=== PATIENT | female | born 1930 | race Caucasian/White ===

== ENCOUNTER 2021-11-22 06:17 | Inpatient (IN) | payer MEDICARE, OTHER ==
[2021-11-23] MEDS ORDERED: Acetaminophen 650 MG Suppository PR PRN (06:27)
[2021-11-23] MEDS ORDERED: Ondansetron ODT 4 MG TAB PO PRN (06:27)
[2021-11-23] MEDS ORDERED: Ondansetron PF 4 MG/2 ML Vial IVP PRN (06:27)
[2021-11-23 07:54] LABS: Anion Gap 12 mmol/L (10-20); BUN (Urea Nitrogen) 18 mg/dL (9.8-20.1); Calc. Creatinine Clearance 50 mL/min (70-130); Calcium 8.4 mg/dL (7.8-10.44); Carbon Dioxide 21 mmol/L (23-31); Chloride 109 mmol/L (98-107); Estimated GFR 69; Glucose 88 mg/dL (83-110); Potassium 4.7 mmol/L (3.5-5.1); Sodium 137 mmol/L (136-145)
[2021-11-23] MEDS ORDERED: Communication Order-Pharmacy FS ONE (08:07)
[2021-11-23] MEDS ORDERED: hydrALAZINE 20 MG/ML VIAL SLOW IVP PRN (08:17)
[2021-11-23] MEDS ORDERED: Enoxaparin Sodium 40 MG/0.4 ML SYRINGE SC SCH (09:00)
[2021-11-23] MEDS ORDERED: Enoxaparin Sodium 30 MG/0.3 ML SYRINGE SC SCH ×2 (09:30→21:00)
[2021-11-23 10:22] LABS: #Eosinphils 0.1 thou/uL (0.0-0.7); #Lymphocytes 1.3 thou/uL (1.20-3.40); #Monocytes 0.3 thou/uL (0.11-0.59); #Neutrophils 2.1 thou/uL (1.40-6.50); %Basophils 0.5 % (0.0-1.0); %Lymphocytes 33.5 % (21.0-51.0); %Monocytes 7.8 % (0.0-10.0); %Neutrophils 56.2 % (42.0-75.0); Hemoglobin 9.9 g/dL (12.0-16.0); Mean Corpuscular HGB CONC 33.1 g/dL (32.0-36.0); Mean Corpuscular Hemoglobin 32.8 pg (27.0-31.0); Mean Corpuscular Volume 99.1 fL (78.0-98.0); Mean Platelet Volume 9.5 fL (7.4-10.4); Platelet Count 84 thou/uL (130-400); RBC Distribution Width 12.1 % (11.5-14.5); Red Blood Cell (RBC) Count 3.03 mill/uL (4.20-5.40); White Blood Cell (WBC) Count 3.8 thou/uL (4.8-10.8)
[2021-11-23 10:23] LABS: Hypochromia SLIGHT = 6-15 cells (100X) (0-5/hpf); MDiff Complete? YES; Platelet Morphology Comment Appears Decreased
[2021-11-23] MEDS: Sodium Chloride 0.45% 1,000 ML IV SCH ×2 (11:00→20:41)
[2021-11-23] MEDS: Folic Acid 1 MG TAB PO SCH (11:00)
[2021-11-23] MEDS: Aspirin 81 mg Enteric Coated Tablet PO SCH (11:00)
[2021-11-23] MEDS: Cyanocobalamin (Vitamin B-12) 1,000 MCG TAB PO SCH (11:00)
[2021-11-23] MEDS: NIRMATRELVIR 150 MG/RITONAVIR 100 MG PO SCH ×2 (11:12→20:39)
[2021-11-23] MEDS: Acetaminophen 325 MG TAB PO PRN (16:27)
[2021-11-23] MEDS: Zinc Sulfate 220 MG CAP PO SCH (20:36)
[2021-11-23] MEDS: Cholecalciferol 1,000 UNITS (25 MCG) TAB PO SCH (20:36)
[2021-11-24 05:57] LABS: ALT (SGPT) 19 U/L (8-55); AST (SGOT) 38 U/L (5-34); Albumin 2.8 g/dL (3.4-4.8); Alkaline Phosphatase 51 U/L (40-110); Anion Gap 11 mmol/L (10-20); BUN (Urea Nitrogen) 19 mg/dL (9.8-20.1); Bilirubin, Total 1.5 mg/dL (0.2-1.2); Calc. Creatinine Clearance 50 mL/min (70-130); Calcium 8.4 mg/dL (7.8-10.44); Carbon Dioxide 23 mmol/L (23-31); Chloride 105 mmol/L (98-107); Estimated GFR 70; Globulin 2.3 g/dL (2.4-3.5); Glucose 90 mg/dL (83-110); Magnesium 1.5 mg/dL (1.6-2.6); Potassium 4.5 mmol/L (3.5-5.1); Protein, Total 5.1 g/dL (5.8-8.1); Sodium 134 mmol/L (136-145)
[2021-11-24 06:12] LABS: #Eosinphils 0.1 thou/uL (0.0-0.7); #Lymphocytes 1.1 thou/uL (1.20-3.40); #Monocytes 0.3 thou/uL (0.11-0.59); %Basophils 0.2 % (0.0-1.0); %Lymphocytes 32.1 % (21.0-51.0); %Monocytes 9.4 % (0.0-10.0); %Neutrophils 55.3 % (42.0-75.0); Hemoglobin 9.1 g/dL (12.0-16.0); Mean Corpuscular Hemoglobin 32.5 pg (27.0-31.0); Mean Corpuscular Volume 98.5 fL (78.0-98.0); Mean Platelet Volume 9.3 fL (7.4-10.4); Phosphorus 1.9 mg/dL (2.3-4.7); Platelet Count 88 thou/uL (130-400); RBC Distribution Width 11.9 % (11.5-14.5); White Blood Cell (WBC) Count 3.5 thou/uL (4.8-10.8)
[2021-11-24] MEDS: Acetaminophen 325 MG TAB PO PRN ×2 (09:03→15:15)
[2021-11-24] MEDS: Aspirin 81 mg Enteric Coated Tablet PO SCH (09:03)
[2021-11-24] MEDS: Cyanocobalamin (Vitamin B-12) 1,000 MCG TAB PO SCH (09:03)
[2021-11-24] MEDS: NIRMATRELVIR 150 MG/RITONAVIR 100 MG PO SCH ×2 (09:04→21:04)
[2021-11-24] MEDS: Folic Acid 1 MG TAB PO SCH (09:04)
[2021-11-24] MEDS: D5 1/2 NS w/40 mEq KCL 1,000 ML IV SCH (16:34)
[2021-11-24] MEDS: Zinc Sulfate 220 MG CAP PO SCH (21:02)
[2021-11-24] MEDS: Cholecalciferol 1,000 UNITS (25 MCG) TAB PO SCH (21:02)
[2021-11-24] MEDS: Magnesium Chloride 64 MG TAB PO SCH (21:07)
[2021-11-25] MEDS: NIRMATRELVIR 150 MG/RITONAVIR 100 MG PO SCH ×2 (09:16→20:28)
[2021-11-25] MEDS: Aspirin 81 mg Enteric Coated Tablet PO SCH (09:17)
[2021-11-25] MEDS: Magnesium Chloride 64 MG TAB PO SCH ×2 (09:17→20:28)
[2021-11-25] MEDS: Folic Acid 1 MG TAB PO SCH (09:17)
[2021-11-25] MEDS: Cyanocobalamin (Vitamin B-12) 1,000 MCG TAB PO SCH (09:17)
[2021-11-25] MEDS: D5 1/2 NS w/40 mEq KCL 1,000 ML IV SCH (12:06)
[2021-11-25] MEDS: Cholecalciferol 1,000 UNITS (25 MCG) TAB PO SCH (20:27)
[2021-11-25] MEDS: Zinc Sulfate 220 MG CAP PO SCH (20:31)
[2021-11-26 06:00] LABS: Hemoglobin 10.1 g/dL (12.0-16.0); Platelet Count 126 thou/uL (130-400)
[2021-11-26 06:17] LABS: Anion Gap 10 mmol/L (10-20); BUN (Urea Nitrogen) 18 mg/dL (9.8-20.1); Calc. Creatinine Clearance 47 mL/min (70-130); Calcium 8.7 mg/dL (7.8-10.44); Carbon Dioxide 23 mmol/L (23-31); Chloride 103 mmol/L (98-107); Estimated GFR 65; Glucose 320 mg/dL (83-110); Sodium 129 mmol/L (136-145)
[2021-11-26 06:22] LABS: Potassium 6.9 mmol/L (3.5-5.1)
[2021-11-26] MEDS ORDERED: Calcium Gluc 4.6 MEQ/10 ML (100 MG/ML) SLOW IVP SCH (06:34)
[2021-11-26] MEDS ORDERED: Dextrose 50% Abboject 50 ML SYRINGE SLOW IVP PRN (06:34)
[2021-11-26] MEDS ORDERED: Insulin Regular 300 UNITS/3 ML VIAL IVP SCH (06:45)
[2021-11-26] MEDS: NIRMATRELVIR 150 MG/RITONAVIR 100 MG PO SCH ×2 (09:27→20:59)
[2021-11-26] MEDS: Folic Acid 1 MG TAB PO SCH (09:28)
[2021-11-26] MEDS: Cyanocobalamin (Vitamin B-12) 1,000 MCG TAB PO SCH (09:29)
[2021-11-26] MEDS: Aspirin 81 mg Enteric Coated Tablet PO SCH (09:29)
[2021-11-26] MEDS: Magnesium Chloride 64 MG TAB PO SCH (10:41)
[2021-11-26 13:42] LABS: Anion Gap 10 mmol/L (10-20); BUN (Urea Nitrogen) 18 mg/dL (9.8-20.1); Calc. Creatinine Clearance 50 mL/min (70-130); Carbon Dioxide 28 mmol/L (23-31); Chloride 99 mmol/L (98-107); Estimated GFR 69; Glucose 75 mg/dL (83-110); Potassium 4.5 mmol/L (3.5-5.1); Sodium 132 mmol/L (136-145)
[2021-11-26] MEDS: Zinc Sulfate 220 MG CAP PO SCH (20:59)
[2021-11-26] MEDS: Cholecalciferol 1,000 UNITS (25 MCG) TAB PO SCH (20:59)
[2021-11-27 05:54] LABS: Anion Gap 14 mmol/L (10-20); BUN (Urea Nitrogen) 22 mg/dL (9.8-20.1); Calc. Creatinine Clearance 49 mL/min (70-130); Calcium 9.2 mg/dL (7.8-10.44); Carbon Dioxide 23 mmol/L (23-31); Chloride 100 mmol/L (98-107); Estimated GFR 67; Glucose 96 mg/dL (83-110); Potassium 4.7 mmol/L (3.5-5.1); Sodium 132 mmol/L (136-145)
[2021-11-27] MEDS: NIRMATRELVIR 150 MG/RITONAVIR 100 MG PO SCH (08:52)
[2021-11-27] MEDS: Cyanocobalamin (Vitamin B-12) 1,000 MCG TAB PO SCH (08:53)
[2021-11-27] MEDS: Aspirin 81 mg Enteric Coated Tablet PO SCH (08:53)
[2021-11-27] MEDS: Folic Acid 1 MG TAB PO SCH (08:53)
[2021-11-27] MEDS: Acetaminophen 325 MG TAB PO PRN (11:33)
[2021-11-27] MEDS: Zinc Sulfate 220 MG CAP PO SCH (21:03)
[2021-11-27] MEDS: Cholecalciferol 1,000 UNITS (25 MCG) TAB PO SCH (21:03)
[2021-11-28 08:12] LABS: Anion Gap 14 mmol/L (10-20); BUN (Urea Nitrogen) 24 mg/dL (9.8-20.1); Calc. Creatinine Clearance 41 mL/min (70-130); Calcium 9.1 mg/dL (7.8-10.44); Carbon Dioxide 26 mmol/L (23-31); Chloride 98 mmol/L (98-107); Estimated GFR 55; Glucose 130 mg/dL (83-110); Potassium 4.5 mmol/L (3.5-5.1); Sodium 133 mmol/L (136-145)
[2021-11-28] MEDS: Cyanocobalamin (Vitamin B-12) 1,000 MCG TAB PO SCH (08:23)
[2021-11-28] MEDS: Folic Acid 1 MG TAB PO SCH (08:23)
[2021-11-28] MEDS ORDERED: Bupivacaine HCl 0.5%/Epinephrine 1:200,000/PF 30 ml Vial ONE (10:10)
[2021-11-28] MEDS ORDERED: Neomycin-Polymyxin 1 ML AMP ONE (10:10)
[2021-11-28] MEDS ORDERED: Rocuronium Bromide 10 MG/ML (10ML VIAL) ONE (11:31)
[2021-11-28] MEDS ORDERED: Clindamycin/D5W 600 mg/50 ml Premix Bag ONE (11:36)
[2021-11-28] MEDS ORDERED: Clindamycin/D5W 600 MG in Premix Bag 1 BAG IVPB SCH (11:45)
[2021-11-28] MEDS ORDERED: Bupivacaine PF 0.5% 30 ML VIAL ONE (12:46)
[2021-11-28] MEDS ORDERED: SUGAMMADEX SODIUM 200 MG/2 ML VIAL ONE (12:53)
[2021-11-28] MEDS ORDERED: Fentanyl 100 MCG/2 ML VIAL ONE (12:56)
[2021-11-28] MEDS ORDERED: Ondansetron PF 4 MG/2 ML Vial ONE (12:57)
[2021-11-28] MEDS ORDERED: Ondansetron HCl/PF 4 MG/2 ML Vial IVP PRN (13:13)
[2021-11-28] MEDS ORDERED: Promethazine HCl 25 MG/ML VIAL IVPB PRN (13:13)
[2021-11-28] MEDS ORDERED: Promethazine HCl 25 MG/ML VIAL IM PRN (13:13)
[2021-11-28] MEDS ORDERED: HYDROcodone/Acetaminophen 7.5/325 mg Tablet PO PRN (13:17)
[2021-11-28] MEDS ORDERED: Morphine 4 MG/ML VIAL SLOW IVP PRN (13:24)
[2021-11-28] MEDS ORDERED: Morphine 2 MG/ML VIAL SLOW IVP SCH (13:30)
[2021-11-28] MEDS: Aspirin 81 mg Enteric Coated Tablet PO SCH (14:32)
[2021-11-28] MEDS: Clindamycin/D5W 600 MG in Premix Bag 1 BAG IVPB SCH (17:39)
[2021-11-28] MEDS: HYDROcodone/Acetaminophen 7.5/325 mg Tablet PO PRN (20:13)
[2021-11-28] MEDS: Cholecalciferol 1,000 UNITS (25 MCG) TAB PO SCH (20:15)
[2021-11-28] MEDS: Zinc Sulfate 220 MG CAP PO SCH (20:15)
[2021-11-29] MEDS: Clindamycin/D5W 600 MG in Premix Bag 1 BAG IVPB SCH (01:19)
[2021-11-29 05:04] LABS: Platelet Count 185 thou/uL (130-400)
[2021-11-29] MEDS: Aspirin 81 mg Enteric Coated Tablet PO SCH (09:55)
[2021-11-29] MEDS: Cyanocobalamin (Vitamin B-12) 1,000 MCG TAB PO SCH (09:55)
[2021-11-29] MEDS: Folic Acid 1 MG TAB PO SCH (09:55)
[2021-11-29] MEDS: HYDROcodone/Acetaminophen 7.5/325 mg Tablet PO PRN (11:29)
[2021-11-29] MEDS: Mirtazapine 15 MG Soltab PO SCH (20:30)
[2021-11-29] MEDS: Cholecalciferol 1,000 UNITS (25 MCG) TAB PO SCH (20:30)
[2021-11-29] MEDS: Atorvastatin Calcium 10 MG TAB PO SCH (20:30)
[2021-11-29] MEDS: Zinc Sulfate 220 MG CAP PO SCH (20:30)
[2021-11-29] MEDS ORDERED: Simvastatin 20 MG TAB PO SCH (21:00)
[2021-11-30 05:35] VITALS: BMI 24.6
[2021-11-30] MEDS: Aspirin 81 mg Enteric Coated Tablet PO SCH (08:52)
[2021-11-30] MEDS: Cyanocobalamin (Vitamin B-12) 1,000 MCG TAB PO SCH (08:53)
[2021-11-30] MEDS: Folic Acid 1 MG TAB PO SCH (08:53)
[2021-11-30] MEDS: HYDROcodone/Acetaminophen 7.5/325 mg Tablet PO PRN (18:08)
[2021-11-30] MEDS ORDERED: Sodium Chloride 0.9% 500 ML IV SCH (18:30)
[2021-11-30] MEDS: Atorvastatin Calcium 10 MG TAB PO SCH (20:03)
[2021-11-30] MEDS: Mirtazapine 15 MG Soltab PO SCH (20:03)
[2021-11-30] MEDS: Cholecalciferol 1,000 UNITS (25 MCG) TAB PO SCH (20:03)
[2021-11-30] MEDS: Zinc Sulfate 220 MG CAP PO SCH (20:03)
[2021-11-30] MEDS ORDERED: Fentanyl 100 MCG/2 ML VIAL ONE (20:11)
[2021-12-01] MEDS: Aspirin 81 mg Enteric Coated Tablet PO SCH (08:52)
[2021-12-01] MEDS: Folic Acid 1 MG TAB PO SCH (08:52)
[2021-12-01] MEDS: Cyanocobalamin (Vitamin B-12) 1,000 MCG TAB PO SCH (08:52)
[2021-12-01 12:01] LABS: Hemoglobin 8.4 g/dL (12.0-16.0); Platelet Count 240 thou/uL (130-400)
[2021-12-01] MEDS: HYDROcodone/Acetaminophen 7.5/325 mg Tablet PO PRN (15:17)
[2021-12-01] MEDS: Zinc Sulfate 220 MG CAP PO SCH (21:07)
[2021-12-01] MEDS: Atorvastatin Calcium 10 MG TAB PO SCH (21:07)
[2021-12-01] MEDS: Cholecalciferol 1,000 UNITS (25 MCG) TAB PO SCH (21:07)
[2021-12-01] MEDS: Mirtazapine 15 MG Soltab PO SCH (21:07)
[2021-12-02 05:29] LABS: Hemoglobin 8.5 g/dL (12.0-16.0); Platelet Count 240 thou/uL (130-400)
[2021-12-02] MEDS: Aspirin 81 mg Enteric Coated Tablet PO SCH (09:46)
[2021-12-02] MEDS: Folic Acid 1 MG TAB PO SCH (09:46)
[2021-12-02] MEDS: Acetaminophen 325 MG TAB PO PRN ×2 (14:27→20:15)
[2021-12-02] MEDS: Cyanocobalamin (Vitamin B-12) 1,000 MCG TAB PO SCH (14:30)
[2021-12-02 19:46] VITALS: BP 139/63; TEMP 98.1
[2021-12-02] MEDS: Zinc Sulfate 220 MG CAP PO SCH (20:15)
[2021-12-02] MEDS: Mirtazapine 15 MG Soltab PO SCH (20:15)
[2021-12-02] MEDS: Cholecalciferol 1,000 UNITS (25 MCG) TAB PO SCH (20:15)
[2021-12-02] MEDS: Atorvastatin Calcium 10 MG TAB PO SCH (20:15)
== END 2021-12-02 20:29 | DRG 492 ==
LOC: NEURO 06:17
PROVIDERS: ADMIT Internal Medicine; ATTEND Internal Medicine
PROC: 8E0ZXY6 Isolation (ICD-10-PCS; 2021-11-22)
PROC: XW0DXF5 Introduction of Other New Technology Therapeutic Substance into Mouth and Pharynx, External Approach, New Technology Group 5 (ICD-10-PCS; 2021-11-23)
PROC: 0PSC04Z Reposition Right Humeral Head with Internal Fixation Device, Open Approach (ICD-10-PCS; principal; 2021-11-28)
DX: S42.211A Unspecified displaced fracture of surgical neck of right humerus, initial encounter for closed fracture (principal); Z66 Do not resuscitate; Z20.822 Contact with and (suspected) exposure to COVID-19; G93.41 Metabolic encephalopathy; U07.1 COVID-19; I69.351 Hemiplegia and hemiparesis following cerebral infarction affecting right dominant side; N17.9 Acute kidney failure, unspecified; E87.1 Hypo-osmolality and hyponatremia; E78.5 Hyperlipidemia, unspecified; K21.9 Gastro-esophageal reflux disease without esophagitis; F41.9 Anxiety disorder, unspecified; I65.23 Occlusion and stenosis of bilateral carotid arteries; N18.30 Chronic kidney disease, stage 3 unspecified; E83.42 Hypomagnesemia; I12.9 Hypertensive chronic kidney disease with stage 1 through stage 4 chronic kidney disease, or unspecified chronic kidney disease; D63.1 Anemia in chronic kidney disease; E87.5 Hyperkalemia; M19.90 Unspecified osteoarthritis, unspecified site; F03.90 Unspecified dementia, unspecified severity, without behavioral disturbance, psychotic disturbance, mood disturbance, and anxiety; I48.0 Paroxysmal atrial fibrillation; Z88.0 Allergy status to penicillin; Z79.899 Other long term (current) drug therapy; Z79.01 Long term (current) use of anticoagulants; Z98.890 Other specified postprocedural states
CPT/HCPCS: 36415; 72192; 76000; 80048; 80053; 83735; 84100; 85014; 85018; 85025; 85049; C1713; J0610; J1650; J1815; J2270; J2405; J3010; J3480; J3490; J7030; S0020